=== PATIENT | male | born 1955 | race Caucasian/White ===

== ENCOUNTER 2018-02-15 07:48 | Day surgery (SDC) | payer BC ==
[~2018-02-15] VITALS: Ht 170.2 cm; Wt 114.2 kg
[~2018-02-15 07:48] MED LIST: ASPI81TA30 PO; ATEN100T PO; ATOR-2 PO; CALC-793 PO; CARV-50 PO; CLON-529 PO; DAPA10TA PO; FENO145T38 PO; FURO40TA4 PO; NIFE90TA44 PO; POTA10TA19 PO
[2018-02-15] MEDS ORDERED: normal saline 1000ml 1,000 ML IV SCH (08:10)
[2018-02-15 08:35] VITALS: BP 167/86
[2018-02-15] MEDS ORDERED: fentaNYL/PF 50MCG/1 ML 2ML syringe IV PRN (08:45)
[2018-02-15] MEDS ORDERED: midazolam 2 mg/2 ml injection IV PRN (08:45)
[2018-02-15] MEDS ORDERED: LIDOcaine 1%/PF 5ML 10 MG/ML VIAL SQ ONE (08:45)
[2018-02-15] MEDS ORDERED: heparin 1,000 units/ml 10ml inj ICATH ONE (08:45)
[2018-02-15] MEDS ORDERED: heparin sodium, porcine/PF 100unit/ml 5ML syringe ONE (08:50)
[2018-02-15] MEDS ORDERED: LIDOcaine 1%/PF 5ML 10 MG/ML VIAL ONE (08:51)
[2018-02-15] MEDS ORDERED: fentaNYL/PF 50MCG/1 ML 2ML syringe ONE ×2 (08:51→09:22)
[2018-02-15] MEDS ORDERED: midazolam 2 mg/2 ml injection ONE ×2 (08:51→09:22)
[2018-02-15 08:57] LABS: BASOPHILS % (AUTO) 0.4 % (0-1); EOSINOPHILS # (AUTO) 0.2 X10'3 (0-0.9); EOSINOPHILS % (AUTO) 2.9 % (0-6); HEMATOCRIT 28.1 % (42.0-52.0); HEMOGLOBIN 9.4 g/dl (14.0-17.9); LYMPHOCYTES # (AUTO) 1.7 X10'3 (1.1-4.8); LYMPHOCYTES % (AUTO) 24.1 % (21-51); MEAN CORPUSCULAR HEMOGLOBIN 28.6 PG (27.0-31.0); MEAN CORPUSCULAR HGB CONC 33.4 % (33.0-36.5); MEAN CORPUSCULAR VOLUME 85.7 FL (78-98); MEAN PLATELET VOLUME 10.3 FL (7.4-10.4); MONOCYTES # (AUTO) 0.8 X10'3 (0-0.9); MONOCYTES % (AUTO) 11.4 % (2-12); NEUTROPHILS # (AUTO) 4.4 X10'3 (1.8-7.7); NEUTROPHILS % (AUTO) 61.2 % (42-75); PLATELET COUNT 219 X10'3 (140-440); RED BLOOD COUNT 3.28 X10'6 (4.70-6.10); RED CELL DISTRIBUTION WIDTH 14.4 % (11.5-14.5); WHITE BLOOD COUNT 7.3 X10'3 (4.5-11.0)
[2018-02-15] MEDS ORDERED: heparin 1,000unit/ml 10ml vial 10 ML ONE (09:02)
[2018-02-15 09:03] LABS: ALBUMIN 3.6 G/DL (3.4-5.0); ANION GAP 16 (8-16); BLOOD UREA NITROGEN 65 MG/DL (7-18); BUN/CREATININE RATIO 10.7 (5.4-32.0); CHLORIDE 104 MMOL/L (99-107); CREATININE 6.05 MG/DL (0.60-1.10); GLUCOSE 98 MG/DL (70-104); POTASSIUM 3.8 MMOL/L (3.5-5.1); SODIUM 143 MMOL/L (135-145); TOTAL CARBON DIOXIDE 23.4 MMOL/L (24-32); eGFR 10 ML/MIN
[2018-02-15 09:24] LABS: INR 1.2 INR; PROTHROMBIN TIME 11.9 SECONDS (9.0-12.0)
[2018-02-15 10:00] VITALS: BP 165/86
[2018-02-15 10:15] VITALS: BP 198/97
[2018-02-15 10:30] VITALS: BP 198/97
[2018-02-15 10:45] VITALS: BP 186/84
== END 2018-02-15 11:00 | disposition home or self-care (01) ==
LOC: SSTAY O 07:48
PROVIDERS: ATTEND Radiology Diagnostic Radiology
DX: E11.22 Type 2 diabetes mellitus with diabetic chronic kidney disease (principal); I12.0 Hypertensive chronic kidney disease with stage 5 chronic kidney disease or end stage renal disease; N18.5 Chronic kidney disease, stage 5; E78.5 Hyperlipidemia, unspecified; G47.33 Obstructive sleep apnea (adult) (pediatric); N40.0 Benign prostatic hyperplasia without lower urinary tract symptoms; K21.9 Gastro-esophageal reflux disease without esophagitis; F10.10 Alcohol abuse, uncomplicated; Z96.649 Presence of unspecified artificial hip joint; Z86.2 Personal history of diseases of the blood and blood-forming organs and certain disorders involving the immune mechanism; Z85.828 Personal history of other malignant neoplasm of skin; Z96.651 Presence of right artificial knee joint; Z79.82 Long term (current) use of aspirin; Z79.891 Long term (current) use of opiate analgesic; Z79.899 Other long term (current) drug therapy; Z98.890 Other specified postprocedural states
CPT/HCPCS: 36415; 36558; 76937; 77001; 80048; 85025; 85610; 99152; 99153; J1642; J1644; J2001; J2250; J3010; J7030; A9270; C1750; C1894